=== PATIENT | male | born 1975 | race Caucasian/White ===

== ENCOUNTER 2019-08-04 10:02 | Emergency (ER) | payer OTHER ==
[2019-08-04] MEDS ORDERED: Sodium Chloride 0.9% 10 ML Syringe FLUSH PRN (10:09)
[2019-08-04 10:46] LABS: CHLORIDE,CL 106 mmol/L (98-107); SODIUM,NA 144 mmol/L (136-145)
[2019-08-04] MEDS ORDERED: diphenhydrAMINE 50 MG/ML SDV IVPUSH ONE (11:02)
[2019-08-04] MEDS ORDERED: Ketorolac 30 MG/ML SDV IVPUSH ONE (11:03)
[2019-08-04] MEDS ORDERED: Ondansetron 4 MG/2 ML SDV IVPUSH ONE (11:03)
[2019-08-04] MEDS ORDERED: Sodium Chloride 0.9% 1,000 ML IV SCH (11:15)
--- NOTE | 2019-08-04 11:32 | EDM.PDOC ---
ED HPI GENERAL MEDICAL PROBLEM - General Chief Complaint: Headache Stated Complaint: severe headache Time Seen by Provider: 08/04/19 10:15 Source of Information: Reports: Patient, Family History Limitations: Reports: No Limitations - History of Present Illness INITIAL COMMENTS - FREE TEXT/NARRATIVE: Pt with acute onset global CASTRO No trauma No previous hx/o same Seen in clinic and sent here for evaluation No chronic CASTRO's No new meds No travel hx No illness No neuro changes Onset: Today, Sudden Duration: Hour(s): Location: Reports: Head Quality: Reports: Throbbing Severity: Severe Treatments [employer]: Reports: Acetaminophen Frontal Headache Pain Score (Numeric/FACES): 10 - Related Data Allergies Allergy/AdvReac Type Severity Reaction Status Date / Time No Known Allergies Allergy Verified 08/04/19 10:03 Home Meds: Home Meds . [No Known Home Meds] 08/04/19 [History] ED ROS GENERAL - Review of Systems Review Of Systems: See Below Constitutional: Reports: No Symptoms HEENT: Reports: No Symptoms Respiratory: Reports: No Symptoms Cardiovascular: Reports: No Symptoms GI/Abdominal: Reports: No Symptoms Musculoskeletal: Reports: No Symptoms Skin: Reports: No Symptoms Neurological: Reports: Headache - Physical Exam Exam: See Below Exam Limited By: No Limitations General Appearance: Moderate Distress Eye Exam: Bilateral Eye: EOMI, PERRL Throat/Mouth: Normal Oropharynx Head Exam: Atraumatic, Normocephalic Neck: Supple, Non-Tender Respiratory/Chest: Lungs Clear Cardiovascular: Regular Rate, Rhythm GI/Abdominal: Non-Tender Neuro Exam (Abbreviated): Alert, Oriented, CN II-XII Intact, Normal Cognition, No Motor/Sensory Deficits Course - Vital Signs Last Recorded V/S: Last Vital Signs Temp 97.5 F 08/04/19 10:04 Pulse 65 08/04/19 10:32 Resp 16 08/04/19 10:32 BP 148/98 H 08/04/19 10:32 Pulse Ox 97 08/04/19 10:32 - Orders/Labs/Meds Orders: Active Orders 24 hr Category Date Time Status Head wo Cont [CT] Stat Exams 08/04/19 10:07 Taken Sodium Chloride 0.9% [Normal Saline] 1,000 ml Med 08/04/19 11:15 Active IV ASDIRECTED Sodium Chloride 0.9% [Saline Flush] Med 08/04/19 10:09 Active 10 ml FLUSH ASDIRECTED PRN Saline Lock Insert [OM.PC] Routine Oth 08/04/19 10:09 Ordered Medication Orders Sodium Chloride (Normal Saline) 1,000 mls @ 999 mls/hr IV ASDIRECTED GERRI Last Admin: 08/04/19 11:19 Dose: 999 mls/hr Sodium Chloride (Saline Flush) 10 ml FLUSH ASDIRECTED PRN PRN Reason: Keep Vein Open Labs: Laboratory Tests 08/04/19 08/04/19 Range/Units 10:20 10:20 WBC 9.6 (4.0-10.2) K/uL RBC 5.58 H (4.33-5.41) M/uL Hgb 16.7 (13.1-16.8) g/dL Hct 46.2 (39.0-49.0) % MCV 82.8 L (84.0-98.0) fL MCH 29.9 (28.2-33.3) pg MCHC 36.1 H (31.7-36.0) g/dL RDW 13.0 (11.2-14.1) % Plt Count 211 (150-350) K/uL Neut % (Auto) 87.5 H (45.0-80.0) % Lymph % (Auto) 8.5 L (10.0-50.0) % [place] % (Auto) 3.5 (2.0-14.0) % Eos % (Auto) 0.4 (0.0-5.0) % Baso % (Auto) 0.1 (0.0-2.0) % Neut # (Auto) 8.43 H (1.40-7.00) K/uL Lymph # (Auto) 0.82 (0.50-3.50) K/uL [place] # (Auto) 0.34 (0.00-1.00) K/uL Eos # (Auto) 0.04 (0.00-0.50) K/uL Baso # (Auto) 0.01 (0.00-0.20) K/uL Sodium 144 (136-145) mmol/L Potassium 4.1 (3.5-5.1) mmol/L Chloride 106 (98-107) mmol/L Carbon Dioxide 28.9 (21.0-32.0) mmol/L BUN 19 H (7-18) mg/dL Creatinine 0.97 (0.51-1.17) mg/dL Est Cr Clr Drug Dosing 114.17 mL/min Estimated GFR (MDRD) > 60 mL/min Glucose 124 H (74-106) mg/dL Calcium 8.8 (8.5-10.1) mg/dL Total Bilirubin 0.6 (0.2-1.0) mg/dL AST 39 H (15-37) U/L ALT 99 H (12-78) U/L Alkaline Phosphatase 85 (46-116) IU/L Total Protein 7.7 (6.4-8.2) g/dL Albumin 4.2 (3.4-5.0) g/dL Meds: Medications Generic Name Dose Route Start Last Admin Trade Name Freq PRN Reason Stop Dose Admin Sodium Chloride 1,000 mls @ 999 mls/hr 08/04/19 11:15 08/04/19 11:19 Normal Saline IV 999 mls/hr ASDIRECTED GERRI Administration Sodium Chloride 10 ml 08/04/19 10:09 Saline Flush FLUSH ASDIRECTED PRN Keep Vein Open Discontinued Medications Generic Name Dose Route Start Last Admin Trade Name Freq PRN Reason Stop Dose Admin Diphenhydramine HCl 50 mg 08/04/19 11:02 08/04/19 11:10 Benadryl IVPUSH 08/04/19 11:03 50 mg ONETIME ONE Administration Ketorolac Tromethamine 30 mg 08/04/19 11:03 08/04/19 11:10 Toradol IVPUSH 08/04/19 11:04 30 mg ONETIME ONE Administration Ondansetron HCl 4 mg 08/04/19 11:03 08/04/19 11:11 Zofran IVPUSH 08/04/19 11:04 4 mg ONETIME ONE Administration - Re-Assessments/Exams Free Text/Narrative Re-Assessment/Exam: 08/04/19 11:31 Pt given IVF, IV Zofran, IV Toradol and IV Benadryl in ER Departure - Departure Time of Disposition: 12:00 Disposition: Home, Self-Care 01 Clinical Impression: Headache Qualifiers: Headache type: unspecified Headache chronicity pattern: acute headache Intractability: not intractable Qualified Code(s): R51 - Headache - Discharge Information *PRESCRIPTION DRUG MONITORING PROGRAM REVIEWED*: Not Applicable *COPY OF PRESCRIPTION DRUG MONITORING REPORT IN PATIENT ELOINA: Not Applicable Instructions: General Headache Without Cause Additional Instructions: Follow up in clinic Sepsis Event Note - Evaluation Sepsis Screening Result: No Definite Risk - Focused Exam Vital Signs: Vital Signs Temp Pulse Resp BP Pulse Ox 08/04/19 10:32 65 16 148/98 H 97 08/04/19 10:04 97.5 F 70 16 146/94 H 95 Date Exam was Performed: 08/04/19 Time Exam was Performed: 11:29 - My Orders Last 24 Hours: My Active Orders 08/04/19 10:07 Head wo Cont [CT] Stat 08/04/19 10:09 Sodium Chloride 0.9% [Saline Flush] 10 ml FLUSH ASDIRECTED PRN Saline Lock Insert [OM.PC] Routine 08/04/19 11:15 Sodium Chloride 0.9% [Normal Saline] 1,000 ml IV ASDIRECTED - Assessment/Plan Last 24 Hours: My Active Orders 08/04/19 10:07 Head wo Cont [CT] Stat 08/04/19 10:09 Sodium Chloride 0.9% [Saline Flush] 10 ml FLUSH ASDIRECTED PRN Saline Lock Insert [OM.PC] Routine 08/04/19 11:15 Sodium Chloride 0.9% [Normal Saline] 1,000 ml IV ASDIRECTED
== END 2019-08-04 11:53 | disposition home or self-care (01) ==
LOC: LL.ED 10:02
DX: R51 Headache (principal)
CPT/HCPCS: 36415; 70450; 80053; 85025; 96361; 96374; 96375; 99284-25; J1200; J1885; J2405; J7030